=== PATIENT | male | born 1940 | race Caucasian/White ===

== ENCOUNTER 2016-09-24 09:56 | Outpatient (CLI) | payer MEDICARE, SELFPAY ==
[2016-09-24 11:21] LABS: #Basophils 0.1 thou/uL (0.0-0.2); #Eosinphils 0.2 thou/uL (0.0-0.7); #Lymphocytes 1.1 thou/uL (1.20-3.40); #Monocytes 0.4 thou/uL (0.11-0.59); #Neutrophils 3.6 thou/uL (1.40-6.50); %Basophils 1.2 % (0.0-1.0); %Eosinophils 4.3 % (0.0-10.0); %Lymphocytes 19.4 % (21.0-51.0); %Monocytes 7.6 % (0.0-10.0); %Neutrophils 67.4 % (42.0-75.0); Hemoglobin 12.7 g/dL (14.0-18.0); Mean Corpuscular HGB CONC 34.6 g/dL (32.0-36.0); Mean Corpuscular Hemoglobin 33.8 pg (27.0-31.0); Mean Corpuscular Volume 97.8 fl (80.0-94.0); Mean Platelet Volume 6.5 fL (7.4-10.4); Platelet Count 328 thou/uL (130-400); Red Blood Cell (RBC) Count 3.77 mill/uL (4.70-6.10); White Blood Cell (WBC) Count 5.4 thou/uL (4.8-10.8)
[2016-09-24 11:46] LABS: ALT (SGPT) 7 U/L (0-55); AST (SGOT) 11 U/L (5-34); Albumin 3.7 g/dL (3.4-4.8); Alkaline Phosphatase 57 U/L (40-150); Anion Gap 13 mmol/L (10-20); BUN (Urea Nitrogen) 18 mg/dL (8.4-25.7); Bilirubin, Total 0.6 mg/dL (0.2-1.2); Calc. Creatinine Clearance 0 mL/min (70-130); Calcium 9.1 mg/dL (7.8-10.44); Carbon Dioxide 27 mmol/L (23-31); Cardiac Risk 3.8 (Less than 4.5); Chloride 102 mmol/L (98-107); Cholesterol 113 mg/dL (< 200 Desired); Estimated GFR-MDRD 57; Globulin 2.8 g/dL (2.4-3.5); Glucose 102 mg/dL (83-110); HDL Cholesterol 30 mg/dL (>60 Neg Risk); LDL Cholesterol, Calculated 68 mg/dL; Potassium 4.8 mmol/L (3.5-5.1); Protein, Total 6.5 g/dL (5.8-8.1); Sodium 137 mmol/L (136-145); Triglycerides 74 mg/dL (Less than 150)
== END 2016-09-24 09:57 ==
LOC: HPCALD 09:56
PROVIDERS: ATTEND Family Medicine
DX: I95.9 Hypotension, unspecified (principal); E78.5 Hyperlipidemia, unspecified
CPT/HCPCS: 36415; 80053; 80061; 85025

== ENCOUNTER 2016-12-15 19:32 | Emergency (ER) | payer MEDICARE ==
[2016-12-15 20:11] LABS: #Basophils 0.1 thou/uL (0.0-0.2); #Eosinphils 0.1 thou/uL (0.0-0.7); #Monocytes 0.8 thou/uL (0.11-0.59); #Neutrophils 6.7 thou/uL (1.40-6.50); %Eosinophils 1.6 % (0.0-10.0); %Lymphocytes 11.3 % (21.0-51.0); %Monocytes 9.6 % (0.0-10.0); %Neutrophils 76.6 % (42.0-75.0); Hemoglobin 13.6 g/dL (14.0-18.0); Mean Corpuscular HGB CONC 33.8 g/dL (32.0-36.0); Mean Corpuscular Volume 97.5 fl (80.0-94.0); Mean Platelet Volume 9.2 fL (7.4-10.4); Platelet Count 142 thou/uL (130-400); RBC Distribution Width 12.2 % (11.5-14.5); Red Blood Cell (RBC) Count 4.12 mill/uL (4.70-6.10); White Blood Cell (WBC) Count 8.7 thou/uL (4.8-10.8)
[2016-12-15 20:17] LABS: Bilirubin Negative (Negative); Blood, Urine Moderate (Negative); Clarity Cloudy (Clear); Glucose, Urine (Dipstick) Negative (Negative); Leukocyte Large (Negative); Nitrite Negative (Negative); Protein, Urine (Dipstick) 30 mg/dL (Neg-Trace); Specific Gravity, Urine 1.015 (1.005-1.030); Urobilinogen 0.2 mg/dL (0.2-1.0); pH, Urine 5.5 (5.0-9.0)
[2016-12-15 20:29] LABS: ALT (SGPT) 8 U/L (8-55); AST (SGOT) 14 U/L (5-34); Alkaline Phosphatase 72 U/L (40-150); Anion Gap 15 mmol/L (10-20); BUN (Urea Nitrogen) 18 mg/dL (8.4-25.7); Bilirubin, Total 0.8 mg/dL (0.2-1.2); Calc. Creatinine Clearance 0 mL/min (70-130); Calcium 8.9 mg/dL (7.8-10.44); Carbon Dioxide 23 mmol/L (23-31); Chloride 103 mmol/L (98-107); Estimated GFR-MDRD 57; Glucose 95 mg/dL (83-110); Lipase 5 U/L (8-78); Potassium 4.1 mmol/L (3.5-5.1); Sodium 137 mmol/L (136-145)
[2016-12-15 20:31] LABS: Bacteria/HPF 4+ HPF (None Seen); Crystals/HPF None Seen HPF (Negative); Hyaline Casts/LPF NONE SEEN LPF (0-3 Hyaline); Other Casts/LPF None Seen LPF (0-3 Hyaline); Oval Fat Bodies/HPF None Seen HPF (None Seen); Renal Epithelial None Seen HPF (0-3); Sperm/HPF None Seen HPF (None Seen); Squamous Epithelial 0-3 HPF (0-3); Transitional Epithelial NONE SEEN HPF (0-3); Trichomonas/HPF None Seen HPF (None Seen); Yeast-All Forms None Seen HPF (None Seen)
[2016-12-15 20:33] LABS: CKMB 0.7 ng/mL (0-6.6); Troponin I Less than 0.010 ng/mL (< 0.028)
[2016-12-15 20:35] LABS: INR-International Normal Ratio 1.7; PTT 38.2 SEC (22.9-36.1); Prothrombin Time 20.5 SEC (12.0-14.7)
[2016-12-15] MEDS ORDERED: cefTRIAXone\\ROCEPHIN 1 GM VIAL ONE (20:58)
--- NOTE | 2016-12-15 22:38 | RAD ---
PORTABLE CHEST: Date: 12-15-16 An AP portable film at 1948 is compared with an 01-12-16 study. FINDINGS: Mild cardiomegaly is about the same as before. There are no congestive changes at the moment. No lar ge pleural effusions are seen, though small ones could be present. There is little increased density in the left upper lobe just above the level of the generator of the cardiac pacer. I cannot exclude an acute infiltrate here. The right lung is clear. The mediastinum was unremarkable. IMPRESSION: 1. Area of increased density in the left upper lobe just above the generator of the cardiac pacer. F urther follow up required to see if this finding is real, might be an actual infiltrate or other pat hology. 2. Mild cardiomegaly without clear congestive change. At most, there may be a little minor blunting in the angles. Code T POS: HOME
== END 2016-12-15 21:56 | disposition short-term general hospital (02) ==
LOC: BURERS 19:32
DX: N39.0 Urinary tract infection, site not specified (principal); R41.82 Altered mental status, unspecified; R06.02 Shortness of breath; I50.9 Heart failure, unspecified; I48.91 Unspecified atrial fibrillation; E78.5 Hyperlipidemia, unspecified; Z79.82 Long term (current) use of aspirin; Z79.899 Other long term (current) drug therapy; Z95.0 Presence of cardiac pacemaker
CPT/HCPCS: 71010; 80053; 81003; 81015; 82553; 83605; 83690; 83880; 84484; 85025; 85610; 85730; 87040; 87077; 87086; 87186; 93005; 96365; J0696

== ENCOUNTER 2016-12-29 16:06 | Emergency (ER) | payer MEDICARE ==
[2016-12-29] MEDS ORDERED: Furosemide 40 MG/4 ML VIAL ONE (16:26)
[2016-12-29 16:33] LABS: #Basophils 0.1 thou/uL (0.0-0.2); #Eosinphils 0.1 thou/uL (0.0-0.7); #Lymphocytes 0.9 thou/uL (1.20-3.40); #Monocytes 0.9 thou/uL (0.11-0.59); #Neutrophils 7.6 thou/uL (1.40-6.50); %Basophils 1.1 % (0.0-1.0); %Eosinophils 0.9 % (0.0-10.0); %Lymphocytes 8.9 % (21.0-51.0); %Monocytes 9.7 % (0.0-10.0); %Neutrophils 79.4 % (42.0-75.0); Hemoglobin 12.7 g/dL (14.0-18.0); Mean Corpuscular Hemoglobin 33.9 pg (27.0-31.0); Mean Corpuscular Volume 94.2 fl (80.0-94.0); Platelet Count 214 thou/uL (130-400); Red Blood Cell (RBC) Count 3.75 mill/uL (4.70-6.10); White Blood Cell (WBC) Count 9.5 thou/uL (4.8-10.8)
[2016-12-29 16:43] LABS: ALT (SGPT) 7 U/L (8-55); AST (SGOT) 12 U/L (5-34); Albumin 3.6 g/dL (3.4-4.8); Alkaline Phosphatase 68 U/L (40-150); Anion Gap 16 mmol/L (10-20); BUN (Urea Nitrogen) 15 mg/dL (8.4-25.7); Bilirubin, Total 0.9 mg/dL (0.2-1.2); Calc. Creatinine Clearance 0 mL/min (70-130); Calcium 8.8 mg/dL (7.8-10.44); Carbon Dioxide 23 mmol/L (23-31); Chloride 100 mmol/L (98-107); Estimated GFR-MDRD 85; Globulin 2.8 g/dL (2.4-3.5); Glucose 117 mg/dL (83-110); Potassium 3.8 mmol/L (3.5-5.1); Protein, Total 6.4 g/dL (5.8-8.1); Sodium 135 mmol/L (136-145)
[2016-12-29 16:46] LABS: INR-International Normal Ratio 1.7; Prothrombin Time 20.9 SEC (12.0-14.7)
[2016-12-29 16:47] LABS: CKMB 0.9 ng/mL (0-6.6)
[2016-12-29] MEDS ORDERED: Sodium Chloride 0.9% 100 ML ONE (16:59)
[2016-12-29] MEDS ORDERED: Cefepime 1 GM VIAL ONE (16:59)
[2016-12-29 17:04] LABS: Bilirubin Negative (Negative); Blood, Urine Moderate (Negative); Clarity Clear (Clear); Glucose, Urine (Dipstick) Negative (Negative); Leukocyte Negative (Negative); Nitrite Negative (Negative); Protein, Urine (Dipstick) Negative (Neg-Trace); Urobilinogen 0.2 mg/dL (0.2-1.0)
[2016-12-29 17:11] LABS: Bacteria/HPF None Seen HPF (None Seen); Crystals/HPF None Seen HPF (Negative); Hyaline Casts/LPF NONE SEEN LPF (0-3 Hyaline); Other Casts/LPF None Seen LPF (0-3 Hyaline); Oval Fat Bodies/HPF None Seen HPF (None Seen); Renal Epithelial None Seen HPF (0-3); Sperm/HPF None Seen HPF (None Seen); Squamous Epithelial None Seen HPF (0-3); Transitional Epithelial NONE SEEN HPF (0-3); Trichomonas/HPF None Seen HPF (None Seen); WBC/HPF None Seen HPF (0-3); Yeast-All Forms None Seen HPF (None Seen)
--- NOTE | 2016-12-29 18:15 | RAD ---
PORTABLE CHEST: Date: 12-29-16 FINDINGS: An AP portable film at 1621 is compared with a 12-15-16 study. The hazy area around the generator of the cardiac pacer on the left has improved in the interval. Ho wever, a new extensive infiltrate is seen in the right lung base, consistent with pneumonia. The upp er lobes are clear. There are no congestive changes or large pleural effusions. Cardiomegaly is abou t the same as before. The cardiac pacer/defibrillator remains in place. IMPRESSION: Interval development of a dense patchy right basilar infiltrate. Pneumonia is suggested. Code T POS: HOME
== END 2016-12-29 20:01 | disposition home or self-care (01) ==
LOC: BURERS 16:06
DX: J18.9 Pneumonia, unspecified organism (principal); I50.9 Heart failure, unspecified; I48.91 Unspecified atrial fibrillation; E78.5 Hyperlipidemia, unspecified; I49.9 Cardiac arrhythmia, unspecified
CPT/HCPCS: 71010; 80053; 81003; 81015; 82553; 83880; 84484; 85025; 85610; 93005; 96365; 96367; 96375; J0692; J1940; J3370; J7050